=== PATIENT | male | born 1975 | race Caucasian/White ===

== ENCOUNTER 2018-11-10 10:11 | Emergency (ER) | payer BC ==
[~2018-11-10] VITALS: Ht 185.4 cm; Wt 97.5 kg
[~2018-11-10 10:11] MED LIST: ACETAMINOPHEN325 M1 PO; ALEVE220 M1 PO; ALEVE220 MG PO; AMOXICILLIN 50500 M1 PO; HYDROCODONE-AP1 EAC6 PO; IBUPROFEN 200200 M1 PO; LORTAB 5-500 T1 EAC1 PO; MEDROLDOSEPACK PO; PERCOCET 7.5-31 EACH PO; ROBAXIN 750 MG750 M1 PO; TRAMADOL 50 MG50 MG PO; ULTRAM ER100 MG PO; ZANAFLEX4 MG PO
[2018-11-10] MEDS ORDERED: LIORESAL 10 MG10 MG PO (10:25)
[2018-11-10 12:02] LABS: ABSOLUTE EOSINOPHILS 0.1 thou/uL (0.0-0.7); ABSOLUTE LYMPHOCYTES 1.3 thou/uL (0.8-5.3); ABSOLUTE MONOCYTES 0.8 thou/uL (0.0-1.2); ABSOLUTE NEUTROPHILS 6.1 thou/uL (1.6-8.1); BASOPHILS 0.2 %; EOSINOPHILS 1.4 %; HEMATOCRIT 39.4 % (42.0-52.0); HEMOGLOBIN 13.6 gm/dL (14.0-18.0); MCH 29.1 pg (26.0-34.0); MCHC 34.6 g/dL (28.0-37.0); MCV 84.2 fL (80.0-100.0); MONOCYTES 9.1 %; MPV 8.3 fl. (7.2-11.1); NUCLEATED RBCS 0 /100WBC; PLATELET COUNT* 195 thou/uL (150-400); POLYS 73.3 %; RBC 4.69 mil/uL (4.50-6.00); RDW-CV 13.7 % (10.5-14.5); WBC 8.3 thou/uL (4.0-11.0)
[2018-11-10 12:18] LABS: ALBUMIN 3.6 g/dL (3.4-5.0); CALCIUM 8.9 mg/dL (8.5-10.1); CREATININE 0.9 mg/dL (0.6-1.3); POTASSIUM 4.2 mmol/L (3.5-5.1); TOTAL BILIRUBIN 0.4 mg/dL (<0.1-1.0); TOTAL PROTEIN 6.9 g/dL (6.4-8.2)
[2018-11-10 12:42] LABS: URINE BILIRUBIN NEGATIVE (Negative); URINE BLOOD NEGATIVE (Negative); URINE CLARITY CLEAR; URINE COLOR YELLOW; URINE GLUCOSE-RANDOM NEGATIVE (Negative); URINE KETONES NEGATIVE (Negative); URINE LEUKOCYTES-REFLEX NEGATIVE (Negative); URINE NITRITE-REFLEX NEGATIVE (Negative); URINE PROTEIN NEGATIVE (Negative); URINE UROBILINOGEN 0.2 E.U./dl (0.2-1.0)
[2018-11-10] MEDS ORDERED: NORCO 5-325 TA1 EACH PO (13:26)
[2018-11-10] MEDS ORDERED: BACTRIM DS TAB1 EACH PO (13:26)
[2018-11-10] MEDS ORDERED: IBUPROFEN 800800 M1 PO (13:26)
[2018-11-10] MEDS ORDERED: KEFLEX500 M1 PO (13:26)
[2018-11-10 13:55] VITALS: BP 119/86
== END 2018-11-10 13:59 | disposition home or self-care (01) ==
LOC: M.ERS 10:11
PROVIDERS: Physician Assistant
DX: M25.561 Pain in right knee (principal); R70.0 Elevated erythrocyte sedimentation rate; F17.210 Nicotine dependence, cigarettes, uncomplicated